=== PATIENT | male | born 1990 | race Caucasian/White ===

== ENCOUNTER 2017-11-28 11:54 | Emergency (ER) | payer SELFPAY | END 2017-11-28 13:18 | disposition left against medical advice (07) | LOC: E/R 13:18 | DX: Z53.21 Procedure and treatment not carried out due to patient leaving prior to being seen by health care provider (principal) ==

== ENCOUNTER 2017-12-28 14:02 | Day surgery (SDC) | payer OTHER ==
[2017-12-28] MEDS ORDERED: MIDAZOLAM 1 MG/ML 2 ML INJ ×2 (16:38)
[2017-12-28] MEDS ORDERED: CEFAZOLIN 1 GM INJ (16:38)
[2017-12-28] MEDS ORDERED: ROCURONIUM 50 MG INJ (16:38)
[2017-12-28] MEDS ORDERED: PROPOFOL 20 ML ×2 (16:38→18:21)
[2017-12-28] MEDS ORDERED: ROPIVACAINE 0.5 % 30 ML VIAL (16:38)
[2017-12-28] MEDS: LIDOCAINE 1% (MPF) 30 ML INJ (17:29)
[2017-12-28] MEDS: BUPIVACAINE 0.5% (SDV) 30 ML INJ (17:29)
[2017-12-28] MEDS: POLYMYXIN/BACITRACIN 1L IRRIG (17:29)
[2017-12-28] MEDS ORDERED: ACETAMINOPHEN 1000MG/100ML IV 100 ML (17:35)
[2017-12-28] MEDS ORDERED: METOCLOPRAMIDE 10 MG INJ (17:35)
[2017-12-28] MEDS ORDERED: ONDANSETRON 4 MG INJ (17:35)
[2017-12-28] MEDS ORDERED: KETOROLAC 30 MG INJ (17:35)
[2017-12-28] MEDS ORDERED: DEXAMETHASONE 4 MG/ML 1 ML INJ (17:35)
[2017-12-28] MEDS ORDERED: FENTAnyl 50 MCG/ML VIAL IV ×2 (18:30)
[2017-12-28] MEDS ORDERED: LABETALOL HCL 20MG INJ IV (18:30)
[2017-12-28] MEDS ORDERED: HYDROmorphONE (0.2 MG/ML) 10ML SYG IV ×2 (18:30)
[2017-12-28] MEDS ORDERED: METOCLOPRAMIDE 10 MG INJ IV (18:30)
[2017-12-28] MEDS ORDERED: DIPHENHYDRAMINE 50 MG INJ IV (18:30)
[2017-12-28] MEDS ORDERED: MEPERIDINE 25 MG INJ IV (18:30)
[2017-12-28] MEDS ORDERED: EPHEDrine SULFATE 50 MG/5 ML SYG IV (18:30)
[2017-12-28] MEDS ORDERED: OXYCODONE/ACETAMINOPHEN (5/325) TAB PO ×2 (18:30→20:30)
[2017-12-28] MEDS ORDERED: ONDANSETRON 4 MG INJ IV (18:30)
[2017-12-28] MEDS: FENTAnyl 50 MCG/ML VIAL IV (18:40)
[2017-12-28] MEDS: HYDROmorphONE (0.2 MG/ML) 10ML SYG IV (19:14)
[2017-12-28] MEDS: OXYCODONE/ACETAMINOPHEN (5/325) TAB PO (19:55)
== END 2017-12-28 20:39 | disposition home or self-care (01) ==
LOC: SDS 14:02
DX: S52.591A Other fractures of lower end of right radius, initial encounter for closed fracture (principal); S52.571A Other intraarticular fracture of lower end of right radius, initial encounter for closed fracture; V00.131A Fall from skateboard, initial encounter; Y93.51 Activity, roller skating (inline) and skateboarding; G56.01 Carpal tunnel syndrome, right upper limb; F17.200 Nicotine dependence, unspecified, uncomplicated
CPT/HCPCS: 25609; 73090-RT